=== PATIENT | male | born 1980 | race American Indian/Alaskan Native ===

== ENCOUNTER 2016-06-01 19:08 | Emergency (ER) | payer SELFPAY ==
[2016-06-01 19:50] VITALS: BP 110/71
== END 2016-06-01 22:09 | disposition left against medical advice (07) ==
LOC: ED 19:08
DX: M79.601 Pain in right arm (principal); M79.602 Pain in left arm; Z53.21 Procedure and treatment not carried out due to patient leaving prior to being seen by health care provider

== ENCOUNTER 2016-06-22 06:37 | Emergency (ER) | payer SELFPAY ==
[2016-06-22 07:17] VITALS: BP 127/80
[2016-06-22] MEDS: XYLOCAINE 2% INFILTRATI ONE (08:12)
--- NOTE | 2016-06-22 08:21 | Emergency Department Report ---
Abscess Boil HPI - HPI Chief Complaint: Skin/Abscess/Foreign Body Stated Complaint: BOIL Time Seen by Provider: 06/22/16 07:45 Duration: >1 Week Location: Other (left axilla) Severity: Mild History: Yes Pain, No Fever, No Purulent Drainage, No Numbness, No Foreign Body , No Previous History, No Insect Bite HPI: 36-year-old male presents to the ED with abscess to left axilla. States taken amoxicillin for about a week with no relief. States it is small, and tender. Denies erythema. Denies fever. Denies purulent drainage. Home Medications: Home Medications Medication Instructions Recorded Confirmed Last Taken Hydrochlorothiazide [Hctz] 25 mg PO QDAY 09/28/13 09/28/13 09/25/13 cloNIDine [Catapres] 0.2 mg PO BID 09/28/13 09/28/13 09/25/13 Previous Rx's Medication Instructions Recorded Last Taken Type Hydrochlorothiazide [HCTZ] 25 mg PO QDAY #30 tablet 09/28/13 Unknown Rx cloNIDine [Catapres] 0.2 mg PO BID #60 tablet 09/28/13 Unknown Rx Ibuprofen [Motrin] 600 mg PO Q8H PRN #30 tablet 02/23/15 Unknown Rx traMADol [Ultram] 50 mg PO Q6HR PRN #14 tablet 02/23/15 Unknown Rx Acetaminophen/Codeine [Tylenol #3] 1 tab PO TID PRN #15 tab 03/01/15 Unknown Rx Ciprofloxacin HCl [Ciprofloxacin 500 mg PO Q12H #14 tab 03/01/15 Unknown Rx TAB] Ondansetron [Zofran Odt] 4 mg PO TID #9 tab.rapdis 03/01/15 Unknown Rx Ibuprofen [Motrin] 600 mg PO Q8H PRN #20 tablet 06/22/16 Unknown Rx Sulfamethoxazole/Trimethoprim 1 each PO BID #14 tablet 06/22/16 Unknown Rx [Bactrim DS TAB] Allergies/Adverse Reactions: Allergies Allergy/AdvReac Type Severity Reaction Status Date / Time No Known Allergies Allergy Verified 03/01/15 04:22 ED Review of Systems ROS: Stated complaint: BOIL Other details as noted in HPI Constitutional: denies: chills, fever Eyes: denies: eye pain, eye discharge, vision change ENT: denies: ear pain, throat pain Respiratory: denies: cough, shortness of breath, wheezing Cardiovascular: denies: chest pain, palpitations Endocrine: no symptoms reported Gastrointestinal: denies: abdominal pain, nausea, diarrhea Genitourinary: denies: urgency, dysuria Musculoskeletal: denies: back pain, joint swelling, arthralgia Skin: denies: rash, lesions Neurological: denies: headache, weakness, paresthesias Psychiatric: denies: anxiety, depression Hematological/Lymphatic: denies: easy bleeding, easy bruising ED Past Medical Hx - Past Medical History Previous Medical History?: Yes Hx Hypertension: Yes Hx Kidney Stones: Yes - Surgical History Past Surgical History?: Yes Additional Surgical History: HERNIA - Social History Smoking Status: Current Every Day Smoker Substance Use Type: None - Medications Home Medications: Home Medications Medication Instructions Recorded Confirmed Last Taken Type Hydrochlorothiazide [HCTZ] 25 mg PO QDAY #30 tablet 09/28/13 Unknown Rx Hydrochlorothiazide [Hctz] 25 mg PO QDAY 09/28/13 09/28/13 09/25/13 History cloNIDine [Catapres] 0.2 mg PO BID 09/28/13 09/28/13 09/25/13 History cloNIDine [Catapres] 0.2 mg PO BID #60 tablet 09/28/13 Unknown Rx Ibuprofen [Motrin] 600 mg PO Q8H PRN #30 tablet 02/23/15 Unknown Rx traMADol [Ultram] 50 mg PO Q6HR PRN #14 tablet 02/23/15 Unknown Rx Acetaminophen/Codeine [Tylenol #3] 1 tab PO TID PRN #15 tab 03/01/15 Unknown Rx Ciprofloxacin HCl [Ciprofloxacin 500 mg PO Q12H #14 tab 03/01/15 Unknown Rx TAB] Ondansetron [Zofran Odt] 4 mg PO TID #9 tab.rapdis 03/01/15 Unknown Rx Ibuprofen [Motrin] 600 mg PO Q8H PRN #20 tablet 06/22/16 Unknown Rx Sulfamethoxazole/Trimethoprim 1 each PO BID #14 tablet 06/22/16 Unknown Rx [Bactrim DS TAB] ED Abscess Boil Physical Exam - Exam General: Vital signs noted. No distress. Alert and acting appropriately. Size: 2 cm Exam: Yes Tenderness, No Fluctuance, No Surrounding Cellulites/Erythema, No Lymphangitis, No Crepitation I & D Note - I & D Note I & D Note: Patient is abscess to left axilla. About 2 cm. Betadine used to prep the area. 2% lidocaine used to anesthetize the area. 11 blade used to make one single straight incision. Skin lead and purulent drainage. Patient tolerated procedure well. ED Course Vital Signs 06/22/16 07:15 Temperature 98 F Pulse Rate 80 Respiratory 16 Rate Blood Pressure 127/80 O2 Sat by Pulse 100 Oximetry Critical care attestation.: If time is entered above; I have spent that time in minutes in the direct care of this critically ill patient, excluding procedure time. ED Medical Decision Making - Medical Decision Making Patient resting comfortably and in no acute distress at this time. States relief after incision and drainage. ED Disposition Clinical Impression: Abscess of left axilla Disposition: DISCHARGED TO HOME OR SELFCARE Is pt being admited?: No Does the pt Need Aspirin: No Condition: Stable Instructions: Abscess (ED) Prescriptions: Ibuprofen [Motrin] 600 mg PO Q8H PRN #20 tablet PRN Reason: Pain Sulfamethoxazole/Trimethoprim [Bactrim DS TAB] 1 each PO BID #14 tablet Referrals: PRIMARY CARE, [Primary Care Provider] - 3-5 Days Forms: Work/School Release Form(ED) Time of Disposition: 08:20
== END 2016-06-22 08:30 | disposition home or self-care (01) ==
LOC: ED 06:37
DX: L02.412 Cutaneous abscess of left axilla (principal); I10 Essential (primary) hypertension; F17.200 Nicotine dependence, unspecified, uncomplicated